=== PATIENT | male | born 1985 | race Caucasian/White ===

== ENCOUNTER 2024-12-09 08:46 | Emergency (ER) | payer OTHER, SELFPAY ==
[2024-12-09] VITALS (114 sets, daily range): BP systolic 96–135; BP diastolic 49–99; PULSE 60–104; RESP 9–30; TEMP 36.8; O2SAT 94–100
--- NOTE | 2024-12-09 08:49 | W.ED.GENAD ---
Discharge Plan Disposition Patient Disposition: Transfer-Acute Inpatient Care Specific Acute Inpt Facility: Other Discharge Details Clinical Impression: Pancreatic pseudocyst, Acute pancreatitis Primary Care Provider: Lara Koenig ED Provider: Jamar Jackson Home Meds and New Rx's Prescriptions: No Action venlafaxine [Effexor XR] 150 mg capsule,extended release 24hr 300 mg PO DAILY fentanyl 50 mcg/hr patch 72 hour 1 patch transdermal Q72H bupropion HCl [Wellbutrin XL] 150 mg tablet extended release 24 hr 150 mg PO DAILY insulin glargine [Lantus U-100 Insulin] 100 unit/mL solution 20 unit subcut BID hydromorphone [Dilaudid] 4 mg tablet 4 mg PO Q6H PRN insulin aspart U-100 [Novolog FlexPen U-100 Insulin] 100 unit/mL (3 mL) insulin pen 1 sliding scale dose subcut USEASDIRECTD uwijwe-vgjfcyzv-lxirvha [Creon] 1 tab PO TID PRN Patient Comments: Taken with meals. acamprosate 2 tab PO DAILY HPI General Date/Time Provider Initiated Documentation: 12/09/24 08:49. HPI Narrative: MDM This is an uncomfortable normothermic and not tachycardic 39-year-old male with history of recurrent pancreatitis with epigastric pain nausea decreased appetite for which patient will receive ondansetron, hydromorphone normal saline and assessment of labs to assess for pancreatitis. Given prior episodes of similar symptoms and no history of AAA my suspicion for aortic dissection is low. I reviewed CT scan from [facility] E[facility]. In July of this year patient had pancreatic ductal dilatation with severely atrophic body and tail of pancreas. He had previously had pancreatic fluid collections. He has had 1 [address] scan this year. Last year he had 4 CT scans of his abdomen and pelvis. No history of nephrolithiasis to suggest ureterolithiasis. No dysuria or frequency to suggest UTI. No chest pain to suggest ACS I did not obtain ECG. No right lower quadrant tenderness to suggest appendicitis. No left lower quadrant tenderness to suggest diverticulitis. Not short of breath and PERC negative so I did not send a D-dimer as he is not having chest pain my suspicion was low for PE. No rash to abdomen to suggest zoster. No pain or proportion to suggest necrotizing soft tissue infection. 9:42 AM CBC lacks anemia thrombocytopenia leukocytosis. 9:55 AM Chemistry showing reassuring normal creatinine. Mild hyperglycemia and very very mild anion gap acidosis but normal bicarbonate??not consistent with DKA. Markedly elevated alkaline phosphatase at 518. Elevated ALT greater than AST. Will add on hepatitis panel and complete CT abdomen pelvis with IV contrast to assess for obstruction mildly elevated lipase less than 3 times upper limit of normal. 10:[address] scan patient had inflammatory changes around his pancreatic head with cysts largest of which measured 4 x 3 cm. He also had some intra and extrahepatic ductal dilatation with gallbladder wall distention. No obvious cholelithiasis. He is not febrile nor altered to suggest choledocholithiasis. Given his symptoms he will require hospitalization. Will plan on completing formal right upper quadrant ultrasound to ensure patient does not have acute cholecystitis. Anticipating admitting to the hospitalist service for pain control. 3:25 PM Late charting due to patient care. I spoke multiple times to Dr. Phuong Cruz with GI [facility]. She advised unfortunately [facility] was at capacity. She did feel that the patient would benefit from ERCP with drainage of fluid collection. She says that this may be possible later this week at [facility] but she did not have any guarantees. She also noted that his LFTs were newly elevated. Given his newly elevated LFTs and his significant discomfort I felt that he would benefit from intervention sooner rather than later with GI so I spoke with [facility] after he was declined by [facility]. He was excepted by Dr. Celestin. I updated the patient and his mother at bedside. I ordered his home glargine and his daily 50 mcg fentanyl patch. I held his aspart. I also ordered his venlafaxine and bupropion. I printed him to have some ice chips. He was sent with a CT to [place]. He will go with an EMG. HPI This is a patient with a history of pancreatitis presenting with abdominal pain. The patient has been experiencing abdominal discomfort for the past 5 days, which has progressively worsened. The pain is localized from the bottom of the sternum to the back, extending to both sides and below the rib cage. The patient reports feeling dizzy and nauseous but has not vomited. The appetite is diminished, with the last meal consisting of low-fat cottage cheese and Jell-O. The patient also notes that the urine is unusually dark. There is no respiratory distress or chest pain. However, the patient experienced a new sensation of burning or itching internally last night, along with a feeling of tightness, which is attributed to tension from the pain. The patient has no history of kidney stones and reports no burning sensation during urination. The patient has a history of pancreatitis, and the current symptoms are reminiscent of previous flare-ups. During these episodes, the patient typically requires hydration and laboratory tests due to abnormal liver and kidney function. The patient has undergone [address] Stewart at the tail of the pancreas, which revealed necrosis and necessitated stent placement. The stent has since been removed. The patient still has the gallbladder, which is reportedly full of sludge and possibly stones. The patient does not recall cholesterol levels from the last check. The patient has abstained from alcohol for over a year. The patient is currently on a pain management regimen for chronic pain, which includes a fentanyl patch every 72 hours and oral hydromorphone as needed. The patient recently had a checkup with the primary care physician and is considering tapering off one of these medications. Exam General: Uncomfortable-appearing in no acute distress speaking in complete sentences. Supportive mother at bedside. Head: Normocephalic, atraumatic. Eye: Extraocular eye movements intact. No conjunctival injection. No scleral icterus. Ear, nose, mouth, throat: Grossly normal inspection. Normal voice, handling secretions normally. Neck: Trachea midline. Cardiovascular: Well-perfused distal extremities. Respiratory: Nonlabored respiration. Clear lungs bilaterally. Gastrointestinal: Nondistended abdomen. Soft. Epigastric and left upper quadrant tenderness. No rebound. No guarding. Musculoskeletal: No edema. Moving all 4 extremities spontaneously. Skin: Normal for age and race, grossly normal temperature and turgor. No acute rash. Neurologic: Alert and appropriate, no apparent acute deficits. Psychiatric: Mood and manner are appropriate. Grooming and personal hygiene are appropriate. Related Data Home Medications ?Medication ?Instructions ?Recorded ?Confirmed acamprosate 2 tab PO DAILY 12/09/24 12/09/24 bupropion HCl 150 mg 24 hr tablet, 150 mg PO DAILY 12/09/24 12/09/24 extended release (Wellbutrin XL) fentanyl 50 mcg/hr transdermal 1 patch transdermal Q72H 12/09/24 12/09/24 patch hydromorphone 4 mg tablet 4 mg PO Q6H PRN 12/09/24 12/09/24 (Dilaudid) insulin aspart U-100 100 unit/mL 1 sliding scale dose subcut 12/09/24 12/09/24 (3 mL) subcutaneous pen (Novolog USEASDIRECTD FlexPen U-100 Insulin aspart) insulin glargine 100 unit/mL 20 unit subcut BID 12/09/24 12/09/24 subcutaneous solution (Lantus U-100 Insulin) begnth-zrketfhj-hyzekdd 1 tab PO TID PRN 12/09/24 12/09/24 venlafaxine 150 mg 300 mg PO DAILY 12/09/24 12/09/24 capsule,extended release 24 hr (Effexor XR) Allergies Allergy/AdvReac Type Severity Reaction Status Date / Time No Known Allergies Allergy Unverified 12/09/24 09:07 PFSH All Active Problems (Updated 12/09/24 @ 15:29 by Jamar Jackson MD) Acute pancreatitis (Acute) Pancreatic pseudocyst (Acute) Social History Smoking/Tobacco Use Status: Current every day Tobacco Type: smokeless tobacco Smoking risk assessment performed?: Yes Alcohol Intake: former Drug use: Daily Substance use type: marijuana Housing: apartment Do you feel safe at home: Yes Do you feel safe in your relationship?: Yes
[2024-12-09 09:36] LABS: Abs Immature Grans 0.02 10^3/uL (0.0-0.06); HCT 44.8 % (40.0-50.0); HGB 15.3 g/dL (13.5-17.5); Immature Grans % 0.3 %; MCH 28.8 pg (27.0-33.0); MCHC 34.2 % (32.0-36.0); MCV 84 fL (80-95); MPV 10.8 fL (8.0-11.0); Platelet Count 231 10^3/uL (130-400); RBC 5.32 10^6/uL (4.36-5.78); RDW 14.8 % (11.8-14.1); RDW-SD 45.1 fL; WBC 7.88 10^3/uL (4.4-10.8)
[2024-12-09] MEDS: Ondansetron 4 MG/2 ML VIAL IVP (09:39)
[2024-12-09] MEDS: HYDROmorphone 2 MG/ML SYR 0.7 MG IVP ×2 (09:41→11:58)
[2024-12-09] MEDS: Normal Saline 1,000 ML 1000 ML IV ×3 (09:43→15:49)
--- NOTE | 2024-12-09 09:45 | DI.CT_ITS ---
Exam(s) CT ABDOMEN PELVIS W EXAM: CT ABDOMEN PELVIS W CLINICAL HISTORY: Epigastric pain elevated LFTs TECHNIQUE: Imaging Protocol: Axial computed tomography images with coronal and sagittal reformatted images were created and reviewed. CONTRAST MATERIAL: Intravenous: Omnipaque 350 Contrast volume:75 mL Oral: No COMPARISON: No exams were available for comparison FINDINGS: ABDOMEN: Lung Bases: No acute abnormality. Liver: Normal density. No measurable mass. Portal, Superior Mesenteric, and Splenic Veins: There is narrowing of the superior mesenteric vein just proximal to its confluence with the splenic vein. There are varices seen in the upper abdomen. Gallbladder and Biliary Tract: Gallbladder is distended. No stones are present. There is mild intra and extrahepatic biliary ductal dilatation. The common duct measures 1 cm. Pancreas: The pancreatic head is enlarged. There is a 4.1 x 3.3 cm cyst within or adjacent to the pancreatic head. There is a 1.4 cm cyst in the uncinate process. There is mild stranding around the pancreatic head. The pancreatic body and tail are atrophic. There is mild prominence of the pancreatic duct. Spleen: Normal. Adrenals: No masses seen. Kidneys: Normal size, contour and axis. No radiodense stones or obstructive uropathy. No masses seen. Abdominal Aorta: Abdominal portion non-dilated. Mild atherosclerotic calcification is present. Bowel: There is no evidence of bowel obstruction. There is wall thickening seen in the distal stomach and proximal duodenum suspicious for inflammatory change. This likely is secondary to the process in the adjacent pancreas. Appendix is unremarkable. Peritoneal Cavity: There is inflammatory stranding seen in the right upper quadrant. No free air. Lymph Nodes: Mildly prominent lymph nodes are seen in the upper abdomen which are likely reactive. Bones: Within normal limits for the patient's age. There is L4 spondylolysis without evidence of spondylolisthesis. Soft Tissues: There is a small fat containing left inguinal hernia. PELVIS: Bladder: Symmetric distention, no gross wall thickening. Reproductive Organs: Unremarkable as visualized. Lymph Nodes: Within normal limits. Bones: Within normal limits for the patient's age. IMPRESSION: 1. There are inflammatory changes seen around the pancreatic head with cysts seen within and adjacent to the head. The largest measures 4.1 x 3.3 cm. This may represent a pseudocyst. The findings are suspicious for acute pancreatitis. A repeat examination of the abdomen and pelvis should be considered following treatment to document resolution of the pancreatic findings and to exclude a pancreatic mass. 2. Mild intra and extrahepatic biliary ductal dilatation and distention of the gallbladder. No stones are seen on this examination, however a gallbladder ultrasound should be considered to assess for cholelithiasis. Choledocholithiasis cannot be entirely excluded. 3. Thickening of the wall of the distal stomach and duodenum likely a secondary inflammatory/infectious process due to the adjacent pancreatitis. 4. There is narrowing of the superior mesenteric artery just proximal to the confluence with the splenic artery. There are varices seen in the upper abdomen. The possibility of occlusion or thrombus should be considered. 5. Findings were discussed with Dr. Jackson at 10:45 a.m. on 12/09/2024. RADIATION DOSE DELIVERED: 538.14mGy.cm Total DLP DATA REPOSITORY: All CT scans at this facility are submitted to the National Radiology Data Registry (NRDR) Dose Index Registry (DIR) with the [employer] ([employer]). RADIATION OPTIMIZATION: All CT scans at this facility use at least one of these dose optimization techniques: automated exposure control; mA and/or kV adjustment per patient size (includes targeted exams where dose is matched to clinical indication); or iterative reconstruction.
[2024-12-09 09:50] LABS: ALT 283 U/L (16-63); AST 80 U/L (15-37); Albumin 4.2 g/dL (3.4-5.0); Alkaline Phosphatase 518 U/L (46-116); Anion Gap 11.1 mmol/L (3-11); BUN 13 mg/dL (7-18); Bilirubin, Total 3.1 mg/dL (0.2-1.0); CO2 25.9 mmol/L (21.0-32.0); Calcium 9.6 mg/dL (8.5-10.1); Chloride 95 mmol/L (98-107); Estimated GFR 119.46 (mL/min/1.73m2); Glucose 306 mg/dL (74-106); Lipase 144 U/L (<78); Potassium 4.7 mmol/L (3.5-5.1); Sodium 132 mmol/L (136-145); Total Protein 7.8 g/dL (6.4-8.2)
[2024-12-09] MEDS: Normal Saline - Diluent 50 ML VIAL IJ (10:05)
[2024-12-09] MEDS: Normal Saline Flush 10 ML SYR IVP (10:06)
[2024-12-09] MEDS: Omnipaque 350 MG/ML 100 ML BTL IJ (10:07)
--- NOTE | 2024-12-09 10:50 | DI.US_ITS ---
Exam(s) US ABDOMEN LIMITED EXAM: US ABDOMEN LIMITED CLINICAL HISTORY: RUQ pain TECHNIQUE: Ultrasound abdomen performed using standard protocol. COMPARISON: CT CT ABDOMEN PELVIS W from 12/09/2024 FINDINGS: PANCREAS: The pancreas could not be visualized due to overlying bowel gas. LIVER: Normal. Hepatopetal flow in the Portal Vein. The liver measures in 15.9 cm length. No evidence of a hepatic mass. GALLBLADDER: No evidence of cholelithiasis. No evidence of wall thickening. No pericholecystic fluid identified. There is a small amount of sludge seen in the gallbladder fundus. BILIARY SYSTEM: Common bile duct measures < 7 mm. No intrahepatic biliary ductal dilation. PECK'S SIGN: Negative. RIGHT KIDNEY: Kidney is normal in size. No evidence of renal calculi. No evidence of hydronephrosis. No renal mass or cyst identified. ASCITES: None seen. IMPRESSION: 1. There is no evidence of cholelithiasis. No sonographic findings to suggest acute cholecystitis. 2. Small amount of sludge within the gallbladder fundus. 3. The pancreas could not be visualized due to overlying bowel. DATA REPOSITORY:
[2024-12-09 11:00] LABS: Lab Add On Test DONE
[2024-12-09] MEDS: HYDROmorphone 2 MG/ML SYR 1 MG IVP ×2 (13:31→19:20)
[2024-12-09] MEDS: fentaNYL 50 MCG PATCH TD (15:06)
[2024-12-09] MEDS: buPROPion-XL 150 MG TABCR PO (15:07)
[2024-12-09] MEDS: Venlafaxine 150 MG CAPCR 300 MG PO (15:07)
[2024-12-09] MEDS: Insulin Glargine 100 UNITS/ML UNIT 20 UNITS SC (15:08)
[2024-12-09] MEDS: HYDROmorphone 2 MG/ML SYR 1.2 MG IVP (16:00)
[2024-12-09] MEDS: oxyCODONE 10 MG TAB PO (19:19)
[2024-12-09] MEDS: Droperidol 5 MG/2 ML VIAL 1.25 MG IVP (19:19)
[2024-12-09 20:26] LABS: Hepatitis A Antibody IgM Negative (Negative); Hepatitis C Ab w Rflx HCV PCR Negative (Negative)
== END 2024-12-09 22:38 | disposition short-term general hospital (02) ==
PROVIDERS: Emergency Medicine; Emergency Provider General Practice; PCP Family Medicine
DX: K85.90 Acute pancreatitis without necrosis or infection, unspecified (principal); K86.3 Pseudocyst of pancreas
CPT/HCPCS: 99285 ×2; 36415; 36416; 82962; 96374; 96375; 96376; 96372; 80053; 83690; 86704; 86709; 86803; 87340; 74177; 76705; 85025; J1171; J1790; J1815; J2405; J3490

== ENCOUNTER 2024-12-30 11:53 | Inpatient (IN) | payer OTHER, SELFPAY ==
[2024-12-30] VITALS (27 sets, daily range): BP systolic 110–138; BP diastolic 60–98; PULSE 65–98; RESP 16–20; TEMP 36.5–36.8; O2SAT 94–99
--- NOTE | 2024-12-30 12:15 | RT.EKG_ITS ---
APPROVED REPORT Exam: Resting ECG Reason for Exam: chest pain Patient Location: E HR:77 bpm ECG Measurements Heart Rate 77 AXIS CO 136 P 49 QRSd 92 QRS 34 QT 372 T 17 QTc 421 Conclusion Sinus rhythm...normal P axis, V-rate 60- 99 I have reviewed and interpreted ECG and agree with software generated interpretation.
[2024-12-30] MEDS: Ondansetron 4 MG/2 ML VIAL IVP ×2 (12:40→20:26)
[2024-12-30] MEDS: HYDROmorphone 2 MG/ML SYR 1 MG IVP (12:40)
[2024-12-30] MEDS: Lactated Ringers 1,000 ML 1000 ML IV (12:41)
[2024-12-30 12:52] LABS: Abs Immature Grans 0.02 10^3/uL (0.0-0.06); HCT 39.7 % (40.0-50.0); HGB 13.4 g/dL (13.5-17.5); Immature Grans % 0.2 %; MCH 29.6 pg (27.0-33.0); MCHC 33.8 % (32.0-36.0); MCV 88 fL (80-95); MPV 12.0 fL (8.0-11.0); Platelet Count 182 10^3/uL (130-400); RBC 4.52 10^6/uL (4.36-5.78); RDW 14.2 % (11.8-14.1); RDW-SD 45.7 fL; WBC 8.28 10^3/uL (4.4-10.8)
[2024-12-30 13:11] LABS: INR 1.1 (0.9-1.1); PTT Activated 26.0 sec (20.6-30.2); Prothrombin Time 10.8 sec (9.1-11.1)
--- NOTE | 2024-12-30 13:11 | ED.GENADUL_ITS ---
Discharge Plan Disposition Patient Disposition: Admit to [facility] Condition: Stable Discharge Details Clinical Impression: Hepatitis, Abdominal pain Primary Care Provider: Lara Koenig ED Provider: Jaime Zamora Home Meds and New Rx's Prescriptions: No Action venlafaxine [Effexor XR] 150 mg capsule,extended release 24hr 300 mg PO DAILY fentanyl 50 mcg/hr patch 72 hour 1 patch transdermal Q72H bupropion HCl [Wellbutrin XL] 150 mg tablet extended release 24 hr 150 mg PO DAILY insulin glargine [Lantus U-100 Insulin] 100 unit/mL solution 20 unit subcut BID hydromorphone [Dilaudid] 4 mg tablet 4 mg PO Q6H PRN insulin aspart U-100 [Novolog FlexPen U-100 Insulin] 100 unit/mL (3 mL) insulin pen 1 sliding scale dose subcut USEASDIRECTD [id number] [Creon] 1 tab PO TID PRN Patient Comments: Taken with meals. acamprosate 2 tab PO DAILY HPI General Date/Time Provider Initiated Documentation: 12/30/24 12:08 . HPI Narrative: This is a pleasant 39-year-old male with a past medical history of diabetes mellitus, previous/chronic pancreatic cysts and chronic pancreatitis with previous stents which have been removed, on daily Dilaudid and fentanyl patches as prescribed by his primary care provider, who was recently here on 12/09/2024, diagnosed with acute cholecystitis and transferred to [facility] where he had a cholecystectomy. Since then the patient has had somewhat chronic persistent pain however over the last 48 hours it is notably worsened. He has had nausea but no vomiting. He admits to pain mainly in the upper abdominal region, severe in nature. It is constant. He has been taking his home Dilaudid without any improvement. He denies any other complaints. He denies any blood in his stool, chest pain, cough, fever or chills. No other modifying factors at this time. Related Data Home Medications ?Medication ?Instructions ?Recorded ?Confirmed acamprosate 2 tab PO DAILY 12/09/2412/08 bupropion HCl 150 mg 24 hr tablet, 150 mg PO DAILY 06/3012/30/24 extended release (Wellbutrin XL) fentanyl 50 mcg/hr transdermal 1 patch transdermal Q72 H 12/09/24 12/30/24 patch hydromorphone 4 mg tablet 4 mg PO Q6H PRN 12/09/24 (Dilaudid) insulin aspart U-100 100 unit/mL 1 sliding scale dose subcut 12/09/24 12/30/24 (3 mL) subcutaneous pen (Novolog USEASDIRECTD FlexPen U-100 Insulin aspart) insulin glargine 100 unit/mL 20 unit subcut BID 12/30/24 subcutaneous solution (Lantus U-100 Insulin) [id number] 1 tab PO TID PRN 12/09/24 venlafaxine 150 mg 300 mg PO DAILY 12/09/24 capsule,extended release 24 hr (Effexor XR) Allergies Allergy/AdvReac Type Severity Reaction Status Date / Time No Known Allergies Allergy Unverified 12/30/24 11:59 General Stated Complaint: Abd Prob JAYSHREE: 3 Exam Narrative Exam Narrative: 1.Const: Well-nourished, Well-developed, appearing stated age 2.Eyes: PERRL, no conjunctival injection, and symmetrical lids. 3.ENT: Atraumatic external nose and ears. Moist MM. Neck: Symmetric, trachea midline, No thyromegaly. 4.CVS: +S1/S2, Peripheral pulses 2+ and equal in all extremities. Brisk capillary refill in all extremities. 5.RESP: Unlabored respiratory effort. Clear to auscultation bilaterally. No wh eezes rales or rhonchi 6.GI: Somewhat rigid, voluntary guarding, tenderness throughout, especially the postoperative sites are clean dry and intact, minimal dehiscence over the inferior medial site but no drainage discharge or redness. 7.MSK: Normocephalic/Atraumatic, Extremities w/o deformity or ttp No cyanosis or clubbing, Normal movement of all extremities 8.Skin: Warm, Dry. No rashes or lesions. 9.Neuro: gusset stitcher II-XII grossly intact. Sensation grossly intact, no focal neurologic deficits. 10.Psych: (AAO) x3. Appropriate mood and affect Course Vital Signs Vital signs: Vital Signs Temperature 36.8 C 12/30/24 11:56 Pulse 90 12/30/24 11:56 Respiratory Rate 18 12/30/24 11:56 Blood Pressure 121/82 12/30/24 11:56 Pulse Oximetry 98 12/30/24 11:56 Temperature 36.8 C 12/30/24 11:56 Pulse 90 12/30/24 11:56 Respiratory Rate 18 12/30/24 11:56 Blood Pressure 121/82 12/30/24 11:56 Pulse Oximetry 98 12/30/24 11:56 Oxygen Delivery Method Room Air 12/30/24 11:56 Oxygen Flow Rate 0 12/30/24 11:56 Pain Level 7 12/30/24 12:40 Lab/Test Results Lab/Test Results: Laboratory Tests Range/Units 12/30/24 12:35 WBC (4.4-10.8) 10^3/uL 8.28 RBC (4.36-5.78) 10^6/uL 4.52 Hgb (13.5-17.5) g/dL 13.4 L Hct (40.0-50.0) % 39.7 L MCV (80-95) fL 88 MCH (27.0-33.0) pg 29.6 MCHC (32.0-36.0) % 33.8 RDW (11.8-14.1) % 14.2 H Plt Count (130-400) 10^3/uL 182 MPV (8.0-11.0) fL 12.0 H Immature Gran % % 0.2 Neutrophils % % 69.0 Lymphocytes % % 18.7 Monocytes % % 5.2 Eosinophils % % 6.3 Basophils % % 0.6 Nucleated RBC % (0.0-0.3) % 0.0 Absolute Neutrophils (1.2-6.7) 10^3/uL 5.71 Absolute Lymphocytes (1.2-3.4) 10^3/uL 1.55 Absolute Monocytes (0.1-0.8) 10^3/uL 0.43 Absolute Eosinophils (0.0-0.7) 10^3/uL 0.52 Absolute Basophils (0.0-0.2) 10^3/uL 0.05 VBG Lactate (<or=2.0) mmol/L 1.1 Medical Decision Making This is a pleasant 39-year-old male with a past medical history of diabetes mellitus, previous/chronic pancreatic cysts and chronic pancreatitis with previous stents which have been removed, on daily Dilaudid and fentanyl patches as prescribed by his primary care provider, who was recently here on 12/09/2024, diagnosed with acute cholecystitis and transferred to [facility] where he had a cholecystectomy. Since then the patient has had somewhat chronic persistent pain however over the last 48 hours it is notably worsened. He has had nausea but no vomiting. He admits to pain mainly in the upper abdominal region, severe in nature. It is constant. He has been taking his home Dilaudid without any improvement. He denies any other complaints. He denies any blood in his stool, chest pain, cough, fever or chills. No other modifying factors at this time. Somewhat rigid, voluntary guarding, tenderness throughout, especially the postoperative sites are clean dry and intact, minimal dehiscence over the inferior medial site but no drainage discharge or redness. Differential includes worsening pancreatitis, postoperative abscess, hepatitis, or other acute process. Will evaluate for these concerning etiologies monitor closely and reassess. 2:51 PM Laboratory workup shows no white count or bandemia. Electrolytes stable, the patient's transaminases and alk phos are all notably higher. We were not able to get complete records from [facility] yet, but we were able to get his last transaminases and alk phos level from his discharge on 12/16/2024. At the time of discharge his AST was 96, ALT 170, alk phos 251, now they are 239, 606, and 707 respectively. Bilirubin is low at 1.6, his last bilirubin here was 3.1. CT scan shows no evidence of acute process, there is an improvement of the pancreatic pseudocyst, there is mild persistent inflammation, but no other significant worsening abnormality. There is persistent and stable mild intra and extra hepatic biliary dilatation. No other acute process. Procalcitonin is mildly elevated at 0.17, lactate was normal. Without significant change in his biliary ducts, I doubt this would be an acute stone that is lodged however it does remain on the differential. However, I do not feel that this is indicative of ascending cholangitis as he has no white count, fever, bandemia or left shift, additionally he has a drop in bilirubin. Postoperative hepatitis is of concern. Choledocholithiasis is of concern. We will reach out to our surgical colleagues here. 4:12 PM MRCP has returned negative for acute process or stone blockage. I did contact surgery Dr. Barrientos. We reviewed the case, and at this time there does not appear to be evidence or indication for an acute surgical etiology. She does suggest potential HIDA scan might be helpful for further evaluation of fluid leak, however without evidence of fluid collection on MRCP or ERCP significant pathology is unlikely. I have added a hepatitis panel as well as a tick and Lyme panel. Surgery recommendations as well as my own recommendations at this time would be admission/observation and recheck of labs tomorrow to make sure they are downtrending. Coagulation panel shows no evidence of significant abnormality. Will recommend admission for lab recheck, continued IV hydration and pain control as needed. Will reach out to the hospitalist. Discussed the case with the hospitalist. They agree with the assessment and plan. I have extensively reviewed the treatment plan with the patient. I have addressed all patient concerns at this time. I have also discussed the plan with the admitting physician and they agree with the current assessment and plan and have agreed to assume responsibility for the patient. All parties demonstrate verbal understanding and agreement with our assessment and plan at this time. The documentation in this chart was dictated using [employer] dictation software. Please excuse any dictation errors. FINDINGS: ABDOMEN and PELVIS: Lung Bases: No acute findings. Liver: Normal density. No suspicious mass. Gallbladder and biliary tract: Status post cholecystectomy. There is stable mild intra and extrahepatic biliary dilatation. No visible common duct stones. No residual fluid in the gallbladder fossa. Pancreas: There is been interval decrease in size of previously noted pseudocyst anterior to the pancreatic head. Approximate measurements are 1.6 x 3.3 cm compared to 4.1 x 3.3 cm on the prior exam. The cyst in the uncinate process has significantly decreased in size, barely discretely visible. There is persistent mild dilatation of the pancreatic duct. The tail of the pancreas is either surgically or congenitally absent or extremely atrophic. There is some persistent mild stranding around the head of the pancreas. Spleen: Normal. Kidneys: Normal size, contour and axis. No radiodense stones. No obstructive uropathy. No suspicious masses seen. Adrenal glands: No masses seen. Vasculature: Abdominal aorta non-dilated. Soft tissues: Unremarkable. Bladder: Over distended. No gross wall thickening. No calculi.No focal mass. Bowel: There is mild wall thickening of the duodenum, adjacent to the head of the pancreas, consistent with secondary inflammation. No obstruction. No bowel wall thickening. Appendix normal. Normal quantity of stool. Peritoneal cavity: No ascites. No focal collection. No mesenteric inflammatory response. No free air. Bones: Bilateral L4 spondylolysis. No significant spondylolisthesis. Reproductive organs: Unremarkable. Lymph nodes: No pathologically enlarged lymph nodes. IMPRESSION:: Interval decrease in size of pancreatic pseudocyst. Persistent mild inflammation. Status post cholecystectomy. No fluid in the gallbladder fossa. Persistent mild intra and extrahepatic biliary dilatation. No new abnormalities. Findings called to Dr. Zamora of the emergency department. FINDINGS: Lung bases: Unremarkable. Liver: Unremarkable. Gallbladder: Status post cholecystectomy. No fluid in the gallbladder fossa. Bile Ducts: Mild dilatation of the intra and extrahepatic biliary ducts. Common bile duct tapers into the pancreatic head. Mild dilatation of the pancreatic duct. The findings appear stable compared with previous exams. There is no ev idence of common bile duct stones. Pancreas: Atrophy of the body and tail. Pseudocyst again noted anterior to the pancreatic head. Pseudocyst size is decreased compared with 09 December 2024 Adrenals: Unremarkable. Kidneys: Unremarkable. Spleen: Unremarkable. Aorta: Unremarkable. Soft Tissues: Unremarkable. Bone: Unremarkable. Lymph Nodes: Unremarkable. Mesentery: No ascites. No focal fluid collection. Bowel: No abnormal dilatation or wall thickening. IMPRESSION: Status post cholecystectomy. Mild dilatation of intra and extrahepatic bile ducts similar to prior exams. No common duct stones. No abnormality identified in the liver. Decreased size of pancreatic pseudocyst compared with 09 December 2024. No significant current inflammation around the pancreas. [facility] All Active Problems (Updated 12/30/24 @ 16:22 by Jaime Zamora DO) Abdominal pain (Acute) Hepatitis (Acute) Acute pancreatitis (Acute) Pancreatic pseudocyst (Acute) Social History Smoking/Tobacco Use Status: Current every day Tobacco Type: smokeless tobacco Smoking risk assessment performed?: Yes Alcohol Intake: former Drug use: Daily Substance use type: marijuana Housing: apartment Do you feel safe at home: Yes Do you feel safe in your relationship?: Yes
[2024-12-30 13:16] LABS: ALT 608 U/L (16-63); AST 239 U/L (15-37); Albumin 3.9 g/dL (3.4-5.0); Alkaline Phosphatase 707 U/L (46-116); Anion Gap 5.0 mmol/L (3-11); BUN 12 mg/dL (7-18); Bilirubin, Total 1.6 mg/dL (0.2-1.0); CO2 32.0 mmol/L (21.0-32.0); Calcium 9.5 mg/dL (8.5-10.1); Chloride 95 mmol/L (98-107); Estimated GFR 119.46 (mL/min/1.73m2); Glucose 370 mg/dL (74-106); Lipase 60 U/L (<78); Potassium 4.1 mmol/L (3.5-5.1); Sodium 132 mmol/L (136-145); Total Protein 7.4 g/dL (6.4-8.2)
[2024-12-30 13:33] LABS: Procalcitonin 0.17 ng/mL
[2024-12-30 13:45] LABS: Glucose 500 mg/dL (Negative)
[2024-12-30] MEDS: HYDROmorphone 2 MG/ML SYR IVP ×5 (13:53→23:13)
[2024-12-30] MEDS: Omnipaque 350 MG/ML 100 ML BTL IJ (14:05)
[2024-12-30] MEDS: Normal Saline - Diluent 50 ML VIAL IJ (14:05)
[2024-12-30] MEDS: Normal Saline Flush 10 ML SYR IVP ×2 (14:06→21:01)
--- NOTE | 2024-12-30 14:10 | DI.CT_ITS ---
Exam(s) CT ABDOMEN PELVIS W EXAM: CT ABDOMEN PELVIS W CLINICAL HISTORY: Recent cholecystectomy, chronic pancreatitis. TECHNIQUE: Imaging Protocol: Axial computed tomography images with coronal and sagittal reformatted images were created and reviewed CONTRAST MATERIAL: Intravenous: Omnipaque 350 Contrast volume:75 ml Oral: no COMPARISON: CT CT ABDOMEN PELVIS W from 12/09/2024 FINDINGS: ABDOMEN and PELVIS: Lung Bases: No acute findings. Liver: Normal density. No suspicious mass. Gallbladder and biliary tract: Status post cholecystectomy. There is stable mild intra and extrahepatic biliary dilatation. No visible common duct stones. No residual fluid in the gallbladder fossa. Pancreas: There is been interval decrease in size of previously noted pseudocyst anterior to the pancreatic head. Approximate measurements are 1.6 x 3.3 cm compared to 4.1 x 3.3 cm on the prior exam. The cyst in the uncinate process has significantly decreased in size, barely discretely visible. There is persistent mild dilatation of the pancreatic duct. The tail of the pancreas is either surgically or congenitally absent or extremely atrophic. There is some persistent mild stranding around the head of the pancreas. Spleen: Normal. Kidneys: Normal size, contour and axis. No radiodense stones. No obstructive uropathy. No suspicious masses seen. Adrenal glands: No masses seen. Vasculature: Abdominal aorta non-dilated. Soft tissues: Unremarkable. Bladder: Over distended. No gross wall thickening. No calculi.No focal mass. Bowel: There is mild wall thickening of the duodenum, adjacent to the head of the pancreas, consistent with secondary inflammation. No obstruction. No bowel wall thickening. Appendix normal. Normal quantity of stool. Peritoneal cavity: No ascites. No focal collection. No mesenteric inflammatory response. No free air. Bones: Bilateral L4 spondylolysis. No significant spondylolisthesis. Reproductive organs: Unremarkable. Lymph nodes: No pathologically enlarged lymph nodes. IMPRESSION:: Interval decrease in size of pancreatic pseudocyst. Persistent mild inflammation. Status post cholecystectomy. No fluid in the gallbladder fossa. Persistent mild intra and extrahepatic biliary dilatation. No new abnormalities. Findings called to Dr. Zamora of the emergency department. RADIATION DOSE DELIVERED: Total DLP DATA REPOSITORY: All CT scans at this facility are submitted to the National Radiology Data Registry (NRDR) Dose Index Registry (DIR) with the [employer] (ACR). RADIATION OPTIMIZATION: All CT scans at this facility use at least one of these dose optimization techniques: automated exposure control; mA and/or kV adjustment per patient size (includes targeted exams where dose is matched to clinical indication); or iterative reconstruction.
--- NOTE | 2024-12-30 14:45 | DI.MRI_ITS ---
Exam(s) MR ABDOMEN WO EXAM: MR ABDOMEN WO CLINICAL HISTORY: Postcholecystectomy, no transaminitis TECHNIQUE: Multiplanar multisequence MRI of the Abdomen was performed. MRCP sequences also performed. COMPARISON: US US ABDOMEN LIMITED from 12/09/[address] ABDOMEN PELVIS W from 12/09/[address] ABDOMEN PELVIS W from 12/30/2024 FINDINGS: Lung bases: Unremarkable. Liver: Unremarkable. Gallbladder: Status post cholecystectomy. No fluid in the gallbladder fossa. Bile Ducts: Mild dilatation of the intra and extrahepatic biliary ducts. Common bile duct tapers into the pancreatic head. Mild dilatation of the pancreatic duct. The findings appear stable compared with previous exams. There is no evidence of common bile duct stones. Pancreas: Atrophy of the body and tail. Pseudocyst again noted anterior to the pancreatic head. Pseudocyst size is decreased compared with 09 December 2024 Adrenals: Unremarkable. Kidneys: Unremarkable. Spleen: Unremarkable. Aorta: Unremarkable. Soft Tissues: Unremarkable. Bone: Unremarkable. Lymph Nodes: Unremarkable. Mesentery: No ascites. No focal fluid collection. Bowel: No abnormal dilatation or wall thickening. IMPRESSION: Status post cholecystectomy. Mild dilatation of intra and extrahepatic bile ducts similar to prior exams. No common duct stones. No abnormality identified in the liver. Decreased size of pancreatic pseudocyst compared with 09 December 2024. No significant current inflammation around the pancreas. DATA REPOSITORY:
--- NOTE | 2024-12-30 15:55 | NUR.NOTE ---
Faxed a request for discharge summary from [facility] to their records release facility @ [phone]. Nursing Note:
--- NOTE | 2024-12-30 17:02 | HPE_ITS ---
Date of service: 12/30/24 Time of Service: 17:02 Assessment and Plan Assessment and plan (1) Abdominal pain: Status: Acute Assessment and plan: Patient has persistent, severe upper abdominal pain not relieved by home opioids. Dilaudid 4 mg QID prn and fentanyl 50 mcg patch (200 MME) Imaging shows decreased size of pancreatic pseudocyst, mild pancreatic duct dilatation, and mild inflammation; no fluid collection or acute obstruction. Admission for observation, IV hydration, and pain control. Trend labs (CBC, CMP, LFTs, amylase/lipase) daily. Surgical consultation obtained; no acute surgical intervention indicated at this time. Apply new fentayl patch and dilaudid 2 mg q3h prn severe pain ~ 200 MME - increase if pain not controlled. (2) Pancreatic pseudocyst: Status: Acute Assessment and plan: Interval decrease noted on imaging; mild residual inflammation persists. Observation; no intervention currently indicated. Continue monitoring for pain or complications. Hold enzymes as on clear liquids (3) Transaminitis: Status: Acute Assessment and plan: Significant elevation in AST/ALT/ALP compared to prior baseline; bilirubin improving. No systemic signs of infection. Monitor LFTs daily, hepatitis panel and tick/Lyme panel ordered. Consider HIDA scan if clinical or lab status worsens. Continue supportive care. Continue routine monitoring of vitals, hydration, electrolytes. Reassess daily and adjust plan based on clinical status, labs, and imaging. (4) Chronic pain: Status: Chronic Assessment and plan: Patient on fentanyl patch and PRN Dilaudid; pain remains significant. IV dilaudid as needed for breakthrough pain. Monitor for efficacy and side effects. 200 MME at home; Dilaudid 2 mg IV q3h prn severe pain (5) Type 2 diabetes mellitus: Status: Acute Assessment and plan: Home insulin regimen continues - decreased 10 %; on clears (glargine + sliding scale aspart). Monitor blood glucose inpatient; adjust insulin per sliding scale. (6) Alcohol use disorder: Status: Acute Assessment and plan: Continue home med (patient has with him, pharmacy to approve) Acamprosate - verifying dose Patient reports 1.5 y sobriety History of Present Illness Narrative: This is a 39-year-old male with a history of diabetes mellitus, chronic pancreatitis with prior stents (now removed), pancreatic pseudocyst, and recent cholecystectomy on 12/09/24 at [facility]. He presented with worsening upper abdominal pain over 48 hours, severe and constant, associated with nausea but no vomiting. His chronic pain regimen of fentanyl patch and oral Dilaudid did not relieve symptoms. He denied fevers, chills, chest pain, cough, GI bleeding, or urinary symptoms. On exam, he was afebrile, hemodynamically stable, and alert/oriented. Abdomen revealed voluntary guarding and diffuse tenderness, greatest at surgical sites, which were clean, dry, and intact with minimal dehiscence but no drainage or erythema. Labs revealed stable CBC without leukocytosis or bandemia, but transaminases and alkaline phosphatase were significantly elevated compared to recent baseline (AST 239, ALT 606, Alk Phos 707). Bilirubin was 1.6, down from 3.1 at prior check. Lactate was normal. Procalcitonin was mildly elevated but no systemic signs of infection were present. Imaging included CT and MRCP, which demonstrated decreased size of pancreatic pseudocyst, persistent but stable mild intra- and extrahepatic biliary dilatation, pancreatic atrophy with mild duct dilatation, and no evidence of common bile duct stones, fluid collections, or acute obstruction. No acute postoperative complications were identified. Surgical consultation was obtained; no acute operative intervention was indicated. Patient is placed on observation status, IV hydration, pain control, and trending of LFTs was recommended. Hepatitis and tick-borne illness panels were ordered, with consideration of HIDA scan if labs worsen or symptoms progress. Patient agrees with plan of care. Patient is a full code. Review of Systems Narrative: General: Denies fever, chills, weight loss. HEENT: No vision changes, sore throat, or ear pain. Cardiac: No chest pain, palpitations, or edema. Respiratory: Denies cough, shortness of breath, wheezing. GI: Positive for abdominal pain and nausea. Denies vomiting, diarrhea, hematochezia, melena. : No dysuria, hematuria, or frequency. MSK: No joint pain, swelling, or trauma. Neuro: Denies headache, weakness, dizziness, focal deficits. Skin: No rash or lesions. Psych: Normal mood, denies suicidal ideation. PFSH All Active Problems (Updated 12/30/24 @ 18:32 by Darby Garland NP) Alcohol use disorder (Acute) Type 2 diabetes mellitus (Acute) Chronic pain (Chronic) Transaminitis (Acute) Abdominal pain (Acute) Hepatitis (Acute) Acute pancreatitis (Acute) Pancreatic pseudocyst (Acute) Social History Smoking/Tobacco Use Status: Current every day Tobacco Type: smokeless tobacco Smoking risk assessment performed?: Yes Alcohol Intake: former Drug use: Daily Substance use type: marijuana Housing: apartment Do you feel safe at home: Yes Do you feel safe in your relationship?: Yes Meds Allergies and Home Medications Allergies Allergy/AdvReac Type Severity Reaction Status Date / Time No Known Allergies Allergy Unverified 12/30/24 11:59 Home Medications ?Medication ?Instructions ?Recorded ?Confirmed ?Type acamprosate 2 tab PO DAILY 12/09/2412/08 History bupropion HCl 150 mg 24 hr tablet, 150 mg PO DAILY 06/3012/30/24 History extended release (Wellbutrin XL) fentanyl 50 mcg/hr transdermal 1 patch transdermal Q72 H 12/09/24 12/30/24 History patch hydromorphone 4 mg tablet 4 mg PO Q6H PRN 12/09/24 History (Dilaudid) insulin aspart U-100 100 unit/mL 1 sliding scale dose subcut 12/09/24 12/30/24 History (3 mL) subcutaneous pen (Novolog USEASDIRECTD FlexPen U-100 Insulin aspart) insulin glargine 100 unit/mL 20 unit subcut BID 12/30/24 History subcutaneous solution (Lantus U-100 Insulin) pxetez-ihplkbku-qqzikef 1 tab PO TID PRN 12/09/24 History venlafaxine 150 mg 300 mg PO DAILY 12/09/24 History capsule,extended release 24 hr (Effexor XR) Exam Narrative Exam Narrative: * General: Well-nourished, well-developed, in mild distress from abdominal pain. * Eyes: PERRL, no conjunctival injection, symmetrical lids. * ENT/Neck: Moist mucous membranes, trachea midline, no thyromegaly. * Cardiac: Regular rate and rhythm, normal S1/S2, 2+ peripheral pulses, brisk cap refill. * Respiratory: Clear to auscultation bilaterally, unlabored effort, no wheezes/rales/rhonchi. * Abdomen: Mild rigidity with voluntary guarding and diffuse tenderness, greatest at surgical sites. Incisions clean/dry/intact, minimal inferior medial dehiscence without drainage or erythema. * MSK: Normal movement of all extremities, no deformity, cyanosis, or clubbing. * Skin: Warm, dry, intact, no rashes or lesions. * Neuro: CN II?XII grossly intact, sensation intact, no focal deficits. * Psych: Alert and oriented x3, appropriate mood and affect. Results Labs 12/30/24 12:35 12/30/24 12:35 Labs: Laboratory Results - last 24 hr 12/30/24 12/30/24 12:35 13:03 WBC 8.28 RBC 4.52 Hgb 13.4 L Hct 39.7 L MCV 88 MCH 29.6 MCHC 33.8 RDW 14.2 H Plt Count 182 MPV 12.0 H Immature Gran % 0.2 Neutrophils % 69.0 Lymphocytes % 18.7 Monocytes % 5.2 Eosinophils % 6.3 Basophils % 0.6 Nucleated RBC % 0.0 Absolute Neutrophils 5.71 Absolute Lymphocytes 1.55 Absolute Monocytes 0.43 Absolute Eosinophils 0.52 Absolute Basophils 0.05 PT 10.8 INR 1.1 APTT 26.0 VBG Lactate 1.1 Sodium 132 L Potassium 4.1 Chloride 95 L Carbon Dioxide 32.0 Anion Gap 5.0 BUN 12 Creatinine 0.7 Est GFR (CKD-EPI 2020) 119.46 Glucose 370 H Calcium 9.5 Total Bilirubin 1.6 H AST 239 H ALT 608 H Alkaline Phosphatase 707 H Total Protein 7.4 Albumin 3.9 Lipase 60 Procalcitonin 0.17 Urine Color Yellow Urine Clarity Clear Urine pH 7.5 Ur Specific [place] 1.015 Urine Protein Negative Urine Ketones Negative Urine Blood Negative Urine Nitrite Negative Urine Bilirubin Negative Urine Urobilinogen 0.2 Ur Leukocyte Esterase Negative Urine Glucose 500 H Last Vital Signs Temp 36.8 C 12/30/24 11:56 Pulse 67 12/30/24 16:10 Resp 18 12/30/24 11:56 BP 113/86 12/30/24 16:04 Pulse Ox 95 12/30/24 16:10 Time Spent Time spent with Patient: 40-54 minutes Time was spent: preparing to see the patient(eg.review tests), obtaining and/or reviewing separately otained hiistory, ordering medications,tests, procedures, referring, communicating with other health associate director career services, indepentently interpreting results, counseling the patient and care coordination
--- NOTE | 2024-12-30 18:11 | W.PC.ACHO ---
Registration Status: ADM PRAMOD Primary Language: Preferred Language: Unable to Obtain ED Information & Data Chief Complaint Abd Prob 12/30/24 13:14 Triage Note pt with chronic pancreatitis 12/30/24 11:56 pt states he was just sent to [facility] to have gallbladder out 14 days ago pt was there 6 days and now is having abdominal pain and nausea and dizzy Most Recent Vital Signs Temperature 36.8 C 12/30/24 11:56 Temperature Source Temporal Artery Scan 12/30/24 17:49 Pulse 92 H 12/30/24 17:49 Pulse Rhythm Regular 12/30/24 17:50 Respiratory Rate 20 12/30/24 17:49 Respiratory Effort Normal 12/30/24 17:50 Respiratory Depth Normal 12/30/24 17:50 Respiratory Pattern Normal 12/30/24 17:50 Blood Pressure 118/98 H 12/30/24 17:49 Blood Pressure Mean 104 12/30/24 17:49 Pulse Oximetry 98 12/30/24 17:49 Oxygen Delivery Method Room Air 12/30/24 17:49 Oxygen Flow Rate 0 12/30/24 17:49 Pain Level 5 12/30/24 17:40 Allergies No Known Allergies Allergy (Unverified 12/30/24 11:59) Active Medications Generic Name Dose Route Start Last Admin Trade Name Freq PRN Reason Stop Dose Admin Iohexol 100 ml 12/30/24 14:15 12/30/24 14:05 Omnipaque 350 Mg/Ml 100 Ml Btl IJ 01/29/25 23:59 75 ml DIRECTED KELLY Administration Ondansetron HCl 4 mg 12/30/24 17:42 12/30/24 18:07 Ondansetron 4 Mg/2 Ml Vial IVP Not Given Q6H KELLY Sodium Chloride 0 ml 12/30/24 14:02 12/30/24 14:06 Normal Saline Flush 10 Ml Syr IVP 10 ml PRN PRN Administration Sodium Chloride 50 ml 12/30/24 14:15 12/30/24 14:05 Normal Saline - Diluent 50 Ml Vial IJ 50 ml DIRECTED KELLY Administration IV IV Catheter Type [Right Peripheral IV Antecubital] IV Catheter Gauge [Right 18 Antecubital] Diet Orders Category Date Time Status DIET [Regular/Normal] [DIET] Nutrition 12/31/24 Breakfast Ordered Diagnostics 12/30/24 12/30/24 12/30/24 Range/Units 16:33 13:03 12:35 WBC 8.28 (4.4-10.8) 10^3/uL RBC 4.52 (4.36-5.78) 10^6/uL Hgb 13.4 L (13.5-17.5) g/dL Hct 39.7 L (40.0-50.0) % MCV 88 (80-95) fL MCH 29.6 (27.0-33.0) pg MCHC 33.8 (32.0-36.0) % RDW 14.2 H (11.8-14.1) % Plt Count 182 (130-400) 10^3/uL MPV 12.0 H (8.0-11.0) fL Immature Gran % 0.2 % Neutrophils % 69.0 % Lymphocytes % 18.7 % Monocytes % 5.2 % Eosinophils % 6.3 % Basophils % 0.6 % Nucleated RBC % 0.0 (0.0-0.3) % Absolute Neutrophils 5.71 (1.2-6.7) 10^3/uL Absolute Lymphocytes 1.55 (1.2-3.4) 10^3/uL Absolute Monocytes 0.43 (0.1-0.8) 10^3/uL Absolute Eosinophils 0.52 (0.0-0.7) 10^3/uL Absolute Basophils 0.05 (0.0-0.2) 10^3/uL PT 10.8 (9.1-11.1) sec INR 1.1 (0.9-1.1) APTT 26.0 (20.6-30.2) sec VBG Lactate 1.1 (<or=2.0) mmol/L Sodium 132 L (136-145) mmol/L Potassium 4.1 (3.5-5.1) mmol/L Chloride 95 L (98-107) mmol/L Carbon Dioxide 32.0 (21.0-32.0) mmol/L Anion Gap 5.0 (3-11) mmol/L BUN 12 (7-18) mg/dL Creatinine 0.7 (0.70-1.30) mg/dL Est GFR (CKD-EPI 2020) 119.46 (mL/min/1.73m2) Glucose 370 H (74-106) mg/dL Calcium 9.5 (8.5-10.1) mg/dL Total Bilirubin 1.6 H (0.2-1.0) mg/dL AST 239 H (15-37) U/L ALT 608 H (16-63) U/L Alkaline Phosphatase 707 H (46-116) U/L Total Protein 7.4 (6.4-8.2) g/dL Albumin 3.9 (3.4-5.0) g/dL Lipase 60 (<78) U/L Procalcitonin 0.17 ng/mL Urine Color Yellow (Yellow) Urine Clarity Clear (Clear) Urine pH 7.5 (5-8) Ur Specific [place] 1.015 (1.005-1.025) Urine Protein Negative (Neg-Trace) mg/dL Urine Ketones Negative (Negative) mg/dL Urine Blood Negative (Negative) Urine Nitrite Negative (Negative) Urine Bilirubin Negative (Negative) Urine Urobilinogen 0.2 (Up to 0.2) mg/dL Ur Leukocyte Esterase Negative (Negative) Urine Glucose 500 H (Negative) mg/dL B. divergens/MO-1 PCR Pending Babesia duncani (PCR) Pending Babesia microti DNA PCR Pending Lyme Disease Antibody Pending E.chaffeensis DNA (PCR) Pending E.ewingii/canis DNA PCR Pending E.muris eauclairensis (PCR) Pending Hepatitis A IgM Ab Pending Hep Bs Antigen Pending Hep B Core Total Ab Pending Hepatitis C Antibody Pending A. phagocytophilum (PCR) Pending Blood B. miyamotoi (PCR) Pending Yvyuq-ht-Hyiw Documentation Fingerstick Glucose Start: 12/30/24 12:59 Freq: Status: Complete Protocol: Activity Type Activity Date Activity User E-sign Co-sign Detail Recorded Client Recorded Date Recorded By Document 12/30/24 12:58 BKG DAEMON(3) [id number] 12/30/24 12:59 BKG DAEMON(4) Intake and Output - 24 Hour Total 12/30/24 11:53 thru 12/30/24 12:41 Intake Total 10 Balance 10 Weight 78.925 kg Intake: IV 10 Falls Risk Assessment History of Falls No History 12/30/24 17:50 Contributing Factors No Factors 12/30/24 17:50 Ambulatory Aids Independent 12/30/24 17:50 Tubes/Lines None 12/30/24 17:50 Gait Evaluation No gait disturbance 12/30/24 17:50 Cognition No cognitive impairment 12/30/24 17:50 Fall Total Score 0 12/30/24 17:50 Level of Risk Standard/Low Risk 12/30/24 17:50 Problems (Updated 12/30/24 @ 17:49 by AMBER JEAN BAPTISTE) Type 2 diabetes mellitus (Acute) Chronic pain (Chronic) Transaminitis (Acute) Abdominal pain (Acute) Pancreatic pseudocyst (Acute) Notes 12/30/24 15:55 Nursing Notes by Kaya Velez Faxed a request for discharge summary from [facility] to their records release facility @ 1663. Nursing Note: Initialized on 12/30/24 15:55 - END OF NOTE v v v v v v v v v Sending and/or Receiving Nurses: Please use comment section below to note any information pertinent to the patient hand-off not included above. Information / Comments: Pt arrived to the unit at 17:35. On RA, IV in RAC. Report received from: Barbara ENRIQUE in the ED @[id number].
[2024-12-30] MEDS: fentaNYL 50 MCG PATCH TD (18:45)
[2024-12-30] MEDS: Normal Saline 1,000 ML 125 ML IV (18:51)
[2024-12-30] MEDS: Insulin Aspart 300 UNITS/3 ML PEN SC (20:12)
[2024-12-31] MEDS: HYDROmorphone 2 MG/ML SYR IVP ×5 (01:37→11:18)
[2024-12-31 02:30] VITALS: BP 113/82; PULSE 64; RESP 16; TEMP 36.7; O2SAT 93
[2024-12-31] MEDS: Normal Saline 1,000 ML 125 ML IV ×3 (03:00→23:33)
[2024-12-31] MEDS: Insulin Aspart 300 UNITS/3 ML PEN SC (06:10)
[2024-12-31 06:55] LABS: Abs Immature Grans 0.02 10^3/uL (0.0-0.06); HCT 39.2 % (40.0-50.0); HGB 12.8 g/dL (13.5-17.5); Immature Grans % 0.3 %; MCH 29.4 pg (27.0-33.0); MCHC 32.7 % (32.0-36.0); MCV 90 fL (80-95); MPV 11.9 fL (8.0-11.0); Platelet Count 165 10^3/uL (130-400); RBC 4.35 10^6/uL (4.36-5.78); RDW 14.4 % (11.8-14.1); RDW-SD 47.7 fL; WBC 6.83 10^3/uL (4.4-10.8)
[2024-12-31] MEDS: Ondansetron 4 MG/2 ML VIAL IVP ×3 (06:58→16:46)
[2024-12-31 07:17] LABS: Magnesium 1.8 mg/dL (1.8-2.4)
[2024-12-31 07:22] LABS: ALT 562 U/L (16-63); AST 232 U/L (15-37); Albumin 3.6 g/dL (3.4-5.0); Alkaline Phosphatase 640 U/L (46-116); Anion Gap 6.8 mmol/L (3-11); BUN 6 mg/dL (7-18); Bilirubin, Total 1.5 mg/dL (0.2-1.0); CO2 31.2 mmol/L (21.0-32.0); Calcium 9.1 mg/dL (8.5-10.1); Chloride 100 mmol/L (98-107); Estimated GFR 125.15 (mL/min/1.73m2); Glucose 252 mg/dL (74-106); Potassium 4.1 mmol/L (3.5-5.1); Sodium 138 mmol/L (136-145); Total Protein 7.0 g/dL (6.4-8.2)
[2024-12-31 07:37] VITALS: BP 125/92; PULSE 62; RESP 16; TEMP 35.9; O2SAT 96
[2024-12-31] MEDS: buPROPion-XL 150 MG TABCR PO (07:57)
[2024-12-31] MEDS: Venlafaxine 150 MG CAPCR 300 MG PO (07:57)
[2024-12-31] MEDS: Normal Saline Flush 10 ML SYR IVP ×4 (07:57→20:24)
[2024-12-31] MEDS: Insulin Glargine 300 UNITS/3 ML PEN 20 UNITS SC ×2 (08:27→20:33)
--- NOTE | 2024-12-31 09:37 | PDOC.CMIN ---
Date of service: 12/31/24 Time of Service: 09:37 Care Management Initial Assmt Initial Assessment Reason for Hospitalization: abdominal pain Functional Status/Living Situation Patient Presentation: Enrique presented to the ED yesterday afternoon with chronic abdominal pain for the prior 48h. Of note, Enrique was transferred to [facility] from [facility] ED on 12/09 where he was dx with cholecystitis and underwent a cholecystectomy, he was also noted to have a pancreatic pseudocyst. He stated that he has had some pain since then, but it worsened over the last 48h, despite taking his home dilaudid and wearing a fentanly patch. Imaging showed decreased size of the pseudocyst, mild pancreatic duct lilatation and mild inflammation. He was admitted to observation for IV hydration and pain control. Surgery was consulted and felt that no surgical intervention is needed at this time. Enrique was sitting on the edge of the bed with an ice pack to his belly, when CM met with him today. He was still very pleasant, despite his obvious pain. Enrique stated that he has been dealing with this problem on and off for 2 years. Sometimes he's good, and sometimes he's not. His Dilaudid dose was increased due to his pain. 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[place]) Instrumental Activities of Daily Living (ADLs): Independent Activities/Hobbies/SocialSupport: loves riding power sports vehicles and just being outside Medications Medication Management: No Issues/Barriers identified Advance Directives Advance Directives: Do you have an Advance Directive: AD On File at [facility]: N 12/09/24, 10:39 Date Asked 12/30/24 12/30/24, 11:59 AD Date Reviewed COLST On File at [facility] COLST Date Scanned Code Status Resuscitation Status Full Code Insurance Coverage/Financial Issues Insurance: [facility] Care Team Visit Care Team Role Provider Type Darby Garland NP MD [facility] STAFF PHYSICIAN Lara Koenig Primary Care Provider NON-[facility] STAFF PHYSICIAN Cuca Reynolds RDN, [facility] Other Providers PUMP RUNNER Ady Monzon RDN Other Providers PUMP RUNNER Jaime Zamora, Emergency Provider [facility] STAFF PHYSICIAN Roc Wagner MD Admit Provider [facility] STAFF PHYSICIAN Attending Provider Discharge Potential Discharge Needs: PCP F/U Appt Anticipated Barriers to Discharge: None Identified Patient/Family Education Needs: Review discharge instructions, discuss Ask Me Three Transportation: Private vehicle Plan: Enrique will likely be discharged home with no new home care services. He will f/u with his PCP, and possibly his surgeon, and continue per his plan of care. Enrique will need a work note on discharge. CM will continue to follow. Social Determinants of Health Screening Social Determinants of health last assessed in clinic: 12/31/24 Will the Patient Participate in the Screening?: Yes Do you worry about having a steady place to live?: no Problems where you live: no known problems In the past 12 months, have you had to go without electric, gas, oil or water in your home?: no 1. Within the past 12 months, we worried whether our food would run out before we got money to buy more.: Don't know/refused 2. Within the past 12 months, the food we bought just didn't last and we didn't have money to get more.: Don't know/refused Has lack of transportation kept you from medical appointments or from doing things needed for daily living?: no Has anyone in your life made you feel unsafe or unsupported?: no How hard is it for you to pay for the very basics like food, housing, medical care, and heating? Would you say it is:: Not hard at all Do you want help finding or keeping work or a job?: I do not need or want help If for any reason you need help with day-to-day activities such as bathing, preparing meals, shopping, managing finances, etc., do you get the help you need?: I don?t need any help How often do you feel lonely or isolated from those around you?: Never Do you speak a language other than Citizen [place] at home?: No Does the patient want assistance with any of the above?: No PFSH All Active Problems (Updated 12/30/24 @ 18:32 by Darby Garland NP) Alcohol use disorder (Acute) Type 2 diabetes mellitus (Acute) Chronic pain (Chronic) Transaminitis (Acute) Abdominal pain (Acute) Hepatitis (Acute) Acute pancreatitis (Acute) Pancreatic pseudocyst (Acute) Social History Smoking/Tobacco Use Status: Current every day Tobacco Type: smokeless tobacco Smoking risk assessment performed?: Yes Alcohol Intake: former Drug use: Daily Substance use type: marijuana Housing: apartment Do you feel safe at home: Yes Do you feel safe in your relationship?: Yes
[2024-12-31 11:09] VITALS: BP 117/98; PULSE 82; RESP 16; TEMP 36.9; O2SAT 98
--- NOTE | 2024-12-31 14:27 | PGE_ITS ---
Date of Service Date of service: 12/31/24 Time of Service: 14:28 Assessment and Plan Assessment and plan (1) Abdominal pain: Status: Acute Assessment and plan: Patient has persistent, severe upper abdominal pain not relieved by home opioids. Dilaudid 4 mg QID prn and fentanyl 50 mcg patch (200 MME) Imaging shows decreased size of pancreatic pseudocyst, mild pancreatic duct d ilatation, and mild inflammation; no fluid collection or acute obstruction. lipase negative ongoing IV hydration s/p additional bolus , and pain control. Trend labs (CBC, CMP, LFTs, amylase/lipase) daily. Comnpleted surgical consultation: no acute surgical intervention indicated at this time. Ongoing fentanyl patch and increase dilaudid 3 mg q2h prn severe pain (2) Pancreatic pseudocyst: Status: Acute Assessment and plan: Mild residual inflammation as per imaging - but improving continue observation; no intervention currently indicated. Contiue to hold enzymes as on clear liquids (3) Transaminitis: Status: Acute Assessment and plan: Continue daily monitoring of significant elevation findings in AST/ALT/ALP compared to prior baseline; bilirubin improving. No systemic signs of infection or stones Hepatitis panel and tick/Lyme panel pending Consider HIDA scan if clinical or lab status worsens Labs in AM Reassess daily and adjust plan based on clinical status, labs, and imaging. (4) Chronic pain: Status: Chronic Assessment and plan: Patient on fentanyl patch and PRN Dilaudid; pain remains significant. Ongoing IV dilaudid as needed for breakthrough pain adjust PRN .- Pain 8/10 prior to pain meds then 6/10 Monitor for efficacy and side effects. (5) Type 2 diabetes mellitus: Status: Acute Assessment and plan: Ongoing home insulin regimen continues - decreased 10 %; on clears (glargine + sliding scale aspart). Monitor blood glucose inpatient AC and HS with SSI coverage (6) Alcohol use disorder: Status: Acute Assessment and plan: Continue home med (patient has with him, pharmacy to approve), Sober as per patient- no Ethyl level on admission Acamprosate - 666 mg TID Patient reported 1.5 y sobriety On LMWH for DVT prophylaxis discussed with Dr Gibbs Subjective Subjective Patient reports: no new complaints, pain is less, voiding w/o difficulty, flatus, bowel movement, nausea and vomiting; denies tolerating liquids well, patricio erating a regular diet, blood in stool, shortness of breath or fever Exam Narrative Exam Narrative: alert & oriented X4,non -icteric sclera , no JVD, neurologically intact, clear lungs, S1, S2 regular heart rate and rhythm, abd in non-distended, soft and tender to LUQ epigastrum and RUQ + morrison's , no CVA tendreness, moves all for ext, no rash or lesion on exposed skin Objective Last Vital Signs Temp 36.9 C 12/31/24 11:09 Pulse 82 12/31/24 11:09 Resp 16 12/31/24 11:09 BP 117/98 H 12/31/24 11:09 Pulse Ox 98 12/31/24 11:09 Laboratory Results - last 24 hr 12/31/24 06:32 WBC 6.83 RBC 4.35 L Hgb 12.8 L Hct 39.2 L MCV 90 MCH 29.4 MCHC 32.7 RDW 14.4 H Plt Count 165 MPV 11.9 H Immature Gran % 0.3 Neutrophils % 42.7 Lymphocytes % 38.4 Monocytes % 6.7 Eosinophils % 10.7 Basophils % 1.2 Nucleated RBC % 0.0 Absolute Neutrophils 2.92 Absolute Lymphocytes 2.62 Absolute Monocytes 0.46 Absolute Eosinophils 0.73 H Absolute Basophils 0.08 Sodium 138 Potassium 4.1 Chloride 100 Carbon Dioxide 31.2 Anion Gap 6.8 BUN 6 L Creatinine 0.6 L Est GFR (CKD-EPI 2020) 125.15 Glucose 252 H Calcium 9.1 Magnesium 1.8 Total Bilirubin 1.5 H AST 232 H ALT 562 H Alkaline Phosphatase 640 H Total Protein 7.0 Albumin 3.6 Time Spent with Patient Time Spent with Patient: >50 minutes Time was spent: preparing to see the patient(eg.review tests), obtaining and/or reviewing separately otained hiistory, ordering medications,tests, procedures, referring, communicating with other health assistant child care teacher, indepentently interpreting results, counseling the patient, care coordination and other
[2024-12-31] MEDS: Normal Saline 1,000 ML 1000 ML IV (14:51)
[2024-12-31] MEDS: HYDROmorphone 2 MG/ML SYR 3 MG IVP ×4 (14:51→22:27)
[2024-12-31] MEDS: Metoclopramide 10 MG/2 ML VIAL 5 MG IVP (15:00)
[2024-12-31 15:05] VITALS: BP 119/94; PULSE 61; RESP 16; TEMP 37; O2SAT 98
[2024-12-31 19:16] LABS: Hepatitis A Antibody IgM Negative (Negative); Hepatitis C Ab w Rflx HCV PCR Negative (Negative)
[2025-01-01 00:18] VITALS: BP 125/101; PULSE 70; RESP 16; TEMP 36.8; O2SAT 95
[2025-01-01] MEDS: HYDROmorphone 2 MG/ML SYR 3 MG IVP ×10 (00:26→23:00)
[2025-01-01] MEDS: Normal Saline Flush 10 ML SYR IVP ×5 (00:27→21:00)
[2025-01-01] MEDS: Ondansetron 4 MG/2 ML VIAL IVP ×3 (01:33→11:49)
[2025-01-01 04:44] VITALS: BP 126/94; PULSE 87; RESP 16; TEMP 36.6; O2SAT 95
[2025-01-01 06:39] LABS: Abs Immature Grans 0.01 10^3/uL (0.0-0.06); HCT 40.5 % (40.0-50.0); HGB 13.1 g/dL (13.5-17.5); Immature Grans % 0.1 %; MCH 29.7 pg (27.0-33.0); MCHC 32.3 % (32.0-36.0); MCV 92 fL (80-95); MPV 12.4 fL (8.0-11.0); Platelet Count 172 10^3/uL (130-400); RBC 4.41 10^6/uL (4.36-5.78); RDW 14.6 % (11.8-14.1); RDW-SD 49.4 fL; WBC 6.82 10^3/uL (4.4-10.8)
[2025-01-01 06:56] LABS: Magnesium 1.8 mg/dL (1.8-2.4)
[2025-01-01 07:01] LABS: ALT 476 U/L (16-63); AST 137 U/L (15-37); Albumin 3.7 g/dL (3.4-5.0); Alkaline Phosphatase 596 U/L (46-116); Anion Gap 8.2 mmol/L (3-11); BUN 4 mg/dL (7-18); Bilirubin, Total 1.1 mg/dL (0.2-1.0); CO2 33.8 mmol/L (21.0-32.0); Calcium 9.3 mg/dL (8.5-10.1); Chloride 102 mmol/L (98-107); Estimated GFR 125.15 (mL/min/1.73m2); Glucose 115 mg/dL (74-106); Potassium 4.0 mmol/L (3.5-5.1); Sodium 144 mmol/L (136-145); Total Protein 7.0 g/dL (6.4-8.2)
[2025-01-01 07:32] VITALS: BP 148/117; PULSE 77; RESP 16; TEMP 36.9; O2SAT 98
[2025-01-01] MEDS: Venlafaxine 150 MG CAPCR 300 MG PO (07:51)
[2025-01-01] MEDS: buPROPion-XL 150 MG TABCR PO (07:51)
[2025-01-01] MEDS: Enoxaparin 40 MG/0.4 ML SYR SC (07:52)
[2025-01-01] MEDS: Normal Saline 1,000 ML 125 ML IV (07:53)
[2025-01-01] MEDS: Insulin Glargine 300 UNITS/3 ML PEN 20 UNITS SC ×2 (07:58→21:06)
--- NOTE | 2025-01-01 09:58 | W.NUTRFU ---
Date of service: 12/31/24 Time of Service: 14:00 Nutrition Note NOTE: met with Enrique yesterday - sitting in bed. still on clears for lunch on 12/31 and told me he vomited afterwards - just a little and mostly water. Hx of chronic pancreatitis with creon taken at meals. pancreatic damage has led to insulin dependence and Enrique works with sliding scale mealtime insulin and 20units BID of glargine. Has been watching fat intake for 2 years and finds his body reacting to same food differently and different times - sometimes causing pain and sometimes tolerating fine. Denies sig weight changes recently or any concerns with chewing and swallowing. I don't see hgb A1c in labs but glucose has improved over this admission 300's down to fasting of 115 today. fingersticks also improved significantly over admission with 312 noted on the th and 99-109 later yesterday to today. Uses CGM to monitor at home. Pt feels he has a good grasp on glucose mgt but feels it can be inconsistent, which can come with skipped meals or unplanned intake etc.. Offered outpatient services to trouble shoot diet and work towards any goals he has with nutrition and getting [id number]. Will continue to monitor glucose and recommend adjustments to current insulin order. Recommend current A1C level Time Spent in Nutritional Counseling and Treatment: 10 min
[2025-01-01] MEDS: Acamprosate 333 MG TABCR 666 MG PO ×3 (10:34→20:58)
[2025-01-01 11:02] LABS: Lyme Ab w Rflx to Lyme Confirm Negative (Negative)
[2025-01-01 11:08] VITALS: BP 140/105; PULSE 69; RESP 16; TEMP 37.2; O2SAT 96
--- NOTE | 2025-01-01 11:17 | PGE_ITS ---
Date of Service Date of service: 01/01/25 Time of Service: 11:17 Assessment and Plan Assessment and plan (1) Abdominal pain: Status: Acute Assessment and plan: Ongoing home dose fentanyl 50 mcg patch (200 MME) Continue hydromorphone 3 mg IV Q2 H As per Imaging decreased size of pancreatic pseudocyst, mild pancreatic duct dilatation, and mild inflammation; no fluid collection or acute obstruction. lipase 60 ongoing IV hydration, consider stopping when adequate enteral fluid intake Completed surgical consultation: no acute surgical intervention indicated at this time. Ongoing fentanyl patch and increase dilaudid 3 mg q2h prn severe pain (2) Pancreatic pseudocyst: Status: Acute Assessment and plan: Mild residual inflammation as per imaging - but improving continue observation; no intervention currently indicated. Contiue to hold enzymes as on clear liquids (3) Transaminitis: Status: Acute Assessment and plan: Levels are trending down, including bilirubin Continue to trend No systemic signs of infection or stones Hepatitis panel - and lyme are negative Other tick bloodborn pathogen pending Consider HIDA scan if clinical or lab status worsens Labs in AM Reassess daily and adjust plan based on clinical status, labs, and imaging. (4) Chronic pain: Status: Chronic Assessment and plan: Patient on fentanyl patch and PRN Dilaudid; pain remains significant. Improved pain control - will continue IV dilaudid as needed for breakthrough pain adjust PRN .- Monitor for efficacy and side effects. (5) Type 2 diabetes mellitus: Status: Acute Assessment and plan: Continue home insulin regimen -reduced dose by 10% d/t diet modification Continue Monitor blood glucose inpatient AC and HS with SSI coverage (6) Nicotine dependence: Status: Acute Assessment and plan: Report history of past cigarette dependence and using NRT at home Nicotine replacement therapy ordered (7) Anxiety: Status: Chronic Assessment and plan: home meds lorazepam oral PRN Considering nicotine withdrawal (8) Alcohol use disorder: Status: Acute Assessment and plan: Continue home med (patient has with him, pharmacy to approve), Sober as per patient- no Ethyl level on admission - now increased anxiety , overwhelmed and tearful and as per point 7 Continue Acamprosate - 666 mg TID Patient reported 1.5 y sobriety- No Ethyl level drawn on admit, now experiencing increased anxiety Continue LMWH for DVT prophylaxis discussed with Dr Gibbs Subjective Subjective Patient reports: voiding w/o difficulty, bowel movement, nausea and other (overhelmed and increased anxiety when getting blood sugar testing by TELEPHONER, iv zofran by RN, and provider talking to him- tearful -agrees w low dose lorazepam to assist ); denies diarrhea, blood in stool, vomiting, shortness of breath or fever Exam Narrative Exam Narrative: alert & oriented X4, tearful, increased muscle tension, heavy sighs while assessing cause of distress:Stating feeling extremely frustrated d/t feeling overwhelmed when 3 staff members are around while he is trying to ask specific q uestions such as advancing clear liquid diet to more solid food ( wanted specific answer : diabetic diet- low fat- solid food) mentioned feeling that provided was frustrated with him but was unable to pin point specifics just a feeling and provider standing at bedside increasing anxiety, directed provider to sit in room corner- during discussion patient could not verbalize any events in the past 24 hours that could have triggered his increased anxiety- but agrees that low dose lorazepam would help. Non-icteric sclera , no JVD, neurologically intact, clear lungs, S1, S2 regular heart rate and rhythm, abd in non-distended, soft and tender to LUQ - morrison's , moves all for ext, no rash or lesion on exposed skin, anxious mood and affect. Objective Last Vital Signs Temp 37.2 C 01/01/25 11:08 Pulse 69 01/01/25 11:08 Resp 16 01/01/25 11:08 BP 140/105 H 01/01/25 11:08 Pulse Ox 96 01/01/25 11:08 Laboratory Results - last 24 hr 12/30/24 01/01/25 16:33 05:58 WBC 6.82 RBC 4.41 Hgb 13.1 L Hct 40.5 MCV 92 MCH 29.7 MCHC 32.3 RDW 14.6 H Plt Count 172 MPV 12.4 H Immature Gran % 0.1 Neutrophils % 37.1 Lymphocytes % 40.2 Monocytes % 6.7 Eosinophils % 15.0 Basophils % 0.9 Nucleated RBC % 0.0 Absolute Neutrophils 2.53 Absolute Lymphocytes 2.74 Absolute Monocytes 0.46 Absolute Eosinophils 1.02 H Absolute Basophils 0.06 Sodium 144 Potassium 4.0 Chloride 102 Carbon Dioxide 33.8 H Anion Gap 8.2 BUN 4 L Creatinine 0.6 L Est GFR (CKD-EPI 2020) 125.15 Glucose 115 H Calcium 9.3 Magnesium 1.8 Total Bilirubin 1.1 H AST 137 H ALT 476 H Alkaline Phosphatase 596 H Total Protein 7.0 Albumin 3.7 Hepatitis A IgM Ab Negative Hep Bs Antigen Negative Hep B Core Total Ab Negative Hepatitis C Antibody Negative Time Spent with Patient Time Spent with Patient: >50 minutes Time was spent: preparing to see the patient(eg.review tests), obtaining and/or reviewing separately otained hiistory, ordering medications,tests, procedures, referring, communicating with other health career based intervention coordinator, indepentently interpreting results, counseling the patient, care coordination and other
[2025-01-01] MEDS: Nicotine 2 MG GUM CH ×3 (11:49→23:04)
[2025-01-01] MEDS: Lactated Ringers 1,000 ML 100 ML IV ×2 (11:51→16:03)
[2025-01-01] MEDS: LORazepam 0.5 MG TAB PO ×2 (12:48→20:58)
[2025-01-01] MEDS: Metoclopramide 10 MG/2 ML VIAL 5 MG IVP (16:15)
[2025-01-01] MEDS: Polyethylene Glycol 3350 17 GM PACKET PO (16:45)
--- NOTE | 2025-01-01 18:52 | PDOC.CMPRO ---
Date of service: 01/01/25 Time of Service: 18:53 Care Management Progress Note Progress Note Text Progress Note Text: Enrique was sitting up in bed, watching TV, when CM met with him today. He looked like he was feeling a lot better, and stated that he is really feeling much better. He slept some last night, was able to tolerate some solids, and his pain is much better controlled. Enrique was again very pleasant and polite. He is hoping to go home tomorrow if his night goes well. Discharge Potential Discharge Needs: PCP F/U Appt Anticipated Barriers to Discharge: None Identified Patient/Family Education Needs: Review discharge instructions, discuss Ask Me Three Transportation: Private vehicle Plan: Enrique will likely be discharged home with no new home care services. He will f/u with his PCP, and possibly his surgeon, and continue per his plan of care. Enrique will need a work note on discharge. CM will continue to follow. Social Determinants of Health Screening Social Determinants of health last assessed in clinic: 01/01/25 Will the Patient Participate in the Screening?: Yes Do you worry about having a steady place to live?: no Problems where you live: no known problems In the past 12 months, have you had to go without electric, gas, oil or water in your home?: no 1. Within the past 12 months, we worried whether our food would run out before we got money to buy more.: Don't know/refused 2. Within the past 12 months, the food we bought just didn't last and we didn't have money to get more.: Don't know/refused Has lack of transportation kept you from medical appointments or from doing things needed for daily living?: no Has anyone in your life made you feel unsafe or unsupported?: no How hard is it for you to pay for the very basics like food, housing, medical care, and heating? Would you say it is:: Not hard at all Do you want help finding or keeping work or a job?: I do not need or want help If for any reason you need help with day-to-day activities such as bathing, preparing meals, shopping, managing finances, etc., do you get the help you need?: I don?t need any help How often do you feel lonely or isolated from those around you?: Never Do you speak a language other than [place] at home?: No Does the patient want assistance with any of the above?: No
[2025-01-01 20:09] VITALS: BP 133/103; PULSE 76; RESP 15; TEMP 36.6; O2SAT 97
[2025-01-02 00:05] VITALS: BP 118/101; PULSE 81; RESP 14; TEMP 36.6; O2SAT 95
[2025-01-02] MEDS: HYDROmorphone 2 MG/ML SYR 3 MG IVP ×2 (02:11→06:23)
[2025-01-02] MEDS: Lactated Ringers 1,000 ML 100 ML IV (02:11)
[2025-01-02] MEDS: Ondansetron 4 MG/2 ML VIAL IVP (02:11)
[2025-01-02 03:19] VITALS: BP 125/97; PULSE 71; RESP 16; TEMP 36.9; O2SAT 96
[2025-01-02 06:04] LABS: Abs Immature Grans 0.01 10^3/uL (0.0-0.06); HCT 41.4 % (40.0-50.0); HGB 13.3 g/dL (13.5-17.5); Immature Grans % 0.1 %; MCH 29.2 pg (27.0-33.0); MCHC 32.1 % (32.0-36.0); MCV 91 fL (80-95); MPV 11.6 fL (8.0-11.0); Platelet Count 158 10^3/uL (130-400); RBC 4.56 10^6/uL (4.36-5.78); RDW 14.2 % (11.8-14.1); RDW-SD 47.7 fL; WBC 6.68 10^3/uL (4.4-10.8)
[2025-01-02] MEDS: Nicotine 2 MG GUM CH (06:23)
[2025-01-02 06:27] LABS: ALT 383 U/L (16-63); AST 76 U/L (15-37); Albumin 3.9 g/dL (3.4-5.0); Alkaline Phosphatase 570 U/L (46-116); Anion Gap 6.6 mmol/L (3-11); BUN 8 mg/dL (7-18); Bilirubin, Total 1.0 mg/dL (0.2-1.0); CO2 35.4 mmol/L (21.0-32.0); Calcium 9.5 mg/dL (8.5-10.1); Chloride 99 mmol/L (98-107); Estimated GFR 119.46 (mL/min/1.73m2); Glucose 167 mg/dL (74-106); Potassium 3.7 mmol/L (3.5-5.1); Sodium 141 mmol/L (136-145); Total Protein 7.3 g/dL (6.4-8.2)
[2025-01-02 07:28] LABS: GGT 1217 U/L (15-85)
[2025-01-02 07:31] VITALS: BP 116/88; PULSE 76; RESP 17; TEMP 36.5; O2SAT 99
[2025-01-02] MEDS: LORazepam 0.5 MG TAB PO (08:51)
[2025-01-02] MEDS: Venlafaxine 150 MG CAPCR 300 MG PO (08:51)
[2025-01-02] MEDS: Metoclopramide 10 MG/2 ML VIAL 5 MG IVP (08:52)
[2025-01-02] MEDS: Enoxaparin 40 MG/0.4 ML SYR SC (08:52)
[2025-01-02] MEDS: buPROPion-XL 150 MG TABCR PO (08:52)
[2025-01-02] MEDS: Acamprosate 333 MG TABCR 666 MG PO (08:52)
[2025-01-02] MEDS: Insulin Aspart 300 UNITS/3 ML PEN SC (08:56)
[2025-01-02] MEDS: Insulin Glargine 300 UNITS/3 ML PEN 20 UNITS SC (08:56)
[2025-01-02] MEDS: Normal Saline Flush 10 ML SYR IVP (08:57)
--- NOTE | 2025-01-02 10:26 | PGE_ITS ---
Date of Service Date of service: 01/02/25 Time of Service: 10:26 Assessment and Plan Assessment and plan (1) Abdominal pain: Status: Acute Assessment and plan: Ongoing home dose fentanyl 50 mcg patch (200 MME) Continue hydromorphone 3 mg IV Q2 H As per Imaging decreased size of pancreatic pseudocyst, mild pancreatic duct dilatation, and mild inflammation; no fluid collection or acute obstruction. lipase 60 ongoing IV hydration, consider stopping when adequate enteral fluid intake Completed surgical consultation: no acute surgical intervention indicated at this time. Ongoing fentanyl patch and increase dilaudid 3 mg q2h prn severe pain (2) Pancreatic pseudocyst: Status: Acute Assessment and plan: Mild residual inflammation as per imaging - but improving continue observation; no intervention currently indicated. Contiue to hold enzymes as on clear liquids (3) Transaminitis: Status: Acute Assessment and plan: Levels are trending down, including bilirubin Continue to trend No systemic signs of infection or stones Hepatitis panel - and lyme are negative Other tick bloodborn pathogen pending Consider HIDA scan if clinical or lab status worsens Labs in AM Reassess daily and adjust plan based on clinical status, labs, and imaging. (4) Chronic pain: Status: Chronic Assessment and plan: Patient on fentanyl patch and PRN Dilaudid; pain remains significant. Improved pain control - will continue IV dilaudid as needed for breakthrough pain adjust PRN .- Monitor for efficacy and side effects. (5) Type 2 diabetes mellitus: Status: Acute Assessment and plan: Continue home insulin regimen -reduced dose by 10% d/t diet modification Continue Monitor blood glucose inpatient AC and HS with SSI coverage (6) Nicotine dependence: Status: Acute Assessment and plan: Report history of past cigarette dependence and using NRT at home Nicotine replacement therapy ordered (7) Anxiety: Status: Chronic Assessment and plan: home meds lorazepam oral PRN Considering nicotine withdrawal (8) Alcohol use disorder: Status: Acute Assessment and plan: Continue home med (patient has with him, pharmacy to approve), Sober as per patient- no Ethyl level on admission - now increased anxiety , overwhelmed and tearful and as per point 7 Continue Acamprosate - 666 mg TID Patient reported 1.5 y sobriety- No Ethyl level drawn on admit, now experiencing increased anxiety Continue LMWH for DVT prophylaxis discussed with Dr Gibbs Subjective Subjective Patient reports: voiding w/o difficulty, bowel movement, nausea and other (overhelmed and increased anxiety when getting blood sugar testing by DYE ROOM HELPER, iv zofran by RN, and provider talking to him- tearful -agrees w low dose lorazepam to assist ); denies diarrhea, blood in stool, vomiting, shortness of breath or fever Exam Narrative Exam Narrative: alert & oriented X4, tearful, increased muscle tension, heavy sighs while assessing cause of distress:Stating feeling extremely frustrated d/t feeling overwhelmed when 3 staff members are around while he is trying to ask specific q uestions such as advancing clear liquid diet to more solid food ( wanted specific answer : diabetic diet- low fat- solid food) mentioned feeling that provided was frustrated with him but was unable to pin point specifics just a feeling and provider standing at bedside increasing anxiety, directed provider to sit in room corner- during discussion patient could not verbalize any events in the past 24 hours that could have triggered his increased anxiety- but agrees that low dose lorazepam would help. Non-icteric sclera , no JVD, neurologically intact, clear lungs, S1, S2 regular heart rate and rhythm, abd in non-distended, soft and tender to LUQ - morrison's , moves all for ext, no rash or lesion on exposed skin, anxious mood and affect. Objective Last Vital Signs Temp 36.5 C 01/02/25 07:31 Pulse 76 01/02/25 07:31 Resp 17 01/02/25 07:31 BP 116/88 01/02/25 07:31 Pulse Ox 99 01/02/25 07:31 Laboratory Results - last 24 hr 12/30/24 01/02/25 16:33 05:40 WBC 6.68 RBC 4.56 Hgb 13.3 L Hct 41.4 MCV 91 MCH 29.2 MCHC 32.1 RDW 14.2 H Plt Count 158 MPV 11.6 H Immature Gran % 0.1 Neutrophils % 42.1 Lymphocytes % 34.1 Monocytes % 6.7 Eosinophils % 16.0 Basophils % 1.0 Nucleated RBC % 0.0 Absolute Neutrophils 2.80 Absolute Lymphocytes 2.28 Absolute Monocytes 0.45 Absolute Eosinophils 1.07 H Absolute Basophils 0.07 Sodium 141 Potassium 3.7 Chloride 99 Carbon Dioxide 35.4 H Anion Gap 6.6 BUN 8 Creatinine 0.7 Est GFR (CKD-EPI 2020) 119.46 Glucose 167 H Calcium 9.5 Total Bilirubin 1.0 GGT 1217 H AST 76 H ALT 383 H Alkaline Phosphatase 570 H Total Protein 7.3 Albumin 3.9 Lyme Disease Antibody Negative
[2025-01-02] MEDS: HYDROmorphone 4 MG TAB PO (11:42)
[2025-01-02] MEDS: Milk of Magnesia 30 ML CUP PO (11:42)
--- NOTE | 2025-01-02 12:21 | NUR.NOTE ---
This nurse received patient in room, he is worried about discharge plan, he was informed than the plan is discharge patient today, he had a questions about his pancreatic enzymes, I informed that drink alcohol is a risk factor, this nurse asked, do you drink ?, he started to be anxious and get mad about the question saying he has been sober for 200 days and I mentioned it is just a risk factor, I let him know I asked for discharge plan, patent mentioned he wants to leave as soon as possible, this nurse informed all this to THREAD SPOOLER and CN. patient states somebody was giggling of him in the meeting this morning I spoke with two more witnesses. I clarify nobody was doing jokes about any patient. he mentioned he is going to talk with the board of nurses and physicians about this. He look some kind paranoid about the situation. Keeping saying somebody was giggling about him.
--- NOTE | 2025-01-02 12:34 | PDOC.CMDIS ---
Date of service: 01/02/25 Time of Service: 12:34 LACE Index Scoring Tool Questions: Length of Stay (in days): 2 Was the patient admitted via the E.D.?: Yes Comorbidities: Diabetes w/o Complication E.D. Visits: 2 Answers: Total Score: 8 Risk of Readmission: Low Risk Care Management Discharge Plan Reason for Hospitalization: Transaminitis Discharge Plan: Enrique will be discharged home with no new home care services. It is recommended he will f/u with his PCP, and possibly his surgeon, and continue per his plan of care. Enrique was given a work note on discharge. He will transport via private vehicle. Risk department notified of patient concerns. Patient/Family Education Needs: Review of discharge instructions, activity, limitations, and plan of care. Discuss ask me three.
--- NOTE | 2025-01-02 12:49 | W.PM.DS.N ---
Date of service: 01/02/25 Time of Service: 12:05 DS: Diagnosis Discharge Diagnosis (1) Abdominal pain: Status: Acute (2) Pancreatic pseudocyst: Status: Acute (3) Transaminitis: Status: Acute (4) Chronic pain: Status: Chronic (5) Type 2 diabetes mellitus: Status: Acute (6) Nicotine dependence: Status: Acute (7) Anxiety: Status: Chronic (8) Alcohol use disorder: Status: Acute Discharge Plan Disposition Patient Disposition: Home Condition: Improving Discharge Details Reason For Visit: Transaminitis Admit Date/Time: 01/01/25 11:10 Admit Provider: Roc Wagner Attending Provider: Roc Wagner Primary Care Provider: Lara Koenig Hospital Course Hospital Course: This is a 39-year-old male with a history of diabetes mellitus, chronic pancreatitis with prior stents (now removed), pancreatic pseudocyst, and recent cholecystectomy on 12/09/24 at [facility]. He presented with worsening upper abdominal pain over 48 hours, severe and constant, associated with nausea but no vomiting. His chronic pain regimen of fentanyl patch and oral Dilaudid did not relieve symptoms. He denied fevers, chills, chest pain, cough, GI bleeding, or urinary symptoms. On exam, he was afebrile, hemodynamically stable, and alert/oriented. Abdomen revealed voluntary guarding and diffuse tenderness, greatest at surgical sites, which were clean, dry, and intact with minimal dehiscence but no drainage or erythema. Labs revealed stable CBC without leukocytosis or bandemia, but transaminases and alkaline phosphatase were significantly elevated compared to recent baseline (AST 239, ALT 606, Alk Phos 707). Bilirubin was 1.6, down from 3.1 at prior check. Lactate was normal. Procalcitonin was mildly elevated but no systemic signs of infection were present. Imaging included CT and MRCP, which demonstrated decreased size of pancreatic pseudocyst, persistent but stable mild intra- and extrahepatic biliary dilatation, pancreatic atrophy with mild duct dilatation, and no evidence of common bile duct stones, fluid collections, or acute obstruction. No acute postoperative complications were identified. Surgical consultation was obtained; no acute operative intervention was indicated. Patient is placed on observation status, IV hydration, IV pain control, and trending of LFTs as recommended. with consideration of HIDA scan if labs worsen or symptoms progress. Hepatitis and Lyme disease were negative, other other tick panel results are pending. On day one of admission the patient emntioned imrpoved pain control but required increased in the dosing for better pain control; upon increasing the IV hydromorphone, the patient verbalized improved pain control. On days 2 the patient mentioned becoming increasingly anxious, overwhelmed by provided and [employer]CH and RN attending to him at the same time. At the time the patient was agreeable to low dose PRN lorazepam which was initiated and effective in improving his anxiety symptoms as per self-report during later encounter that day. The patient was tolerating enteral intake of clear liquid and the diet was advanced to regular consistency low fat diabetic diet which was well tolerated. During the stay liver enzymes and bilirubin continued to trend down but however GGT was at 1217( AST 76, ALT 383, and ALK 570) when compared to 927 at [facility] on 12/12/24. The patient reportedly asked RN about if we figured out why my liver enzymes kept going up and the nusrse asked if he was drinking, causing the patient to become increasingly anxious and demanding to go home. RN, provider and lead charge nurse met with patient to clarify reports by patient of providers, RNs laughing at him during AM meeting; despite reassurance that no one lsughed at his expanse, the patient remains firmon his decision to leave now, mentioning that he will sixto the hospital, and ongoing rudeness from provider while the encounter was witnessed; the patient was unable to specify element showing rudeness when asked. Due to the constant requirement for hydromorphone IV during the stay and lorazepam as needed for anxiety, the patient was asked about a pharmacy among the 7 listed to send his increased frequency for oral hydromorphone and new PRN lorazepam. The patient declined any script to be sent to an outpatient pharmacy stating that he will address this with his PCP. The patient mentioned having a couple of bottles of Acamprosate when asked if he had enough of this home medicine. The patient was hemodynamically stable but was tensed as per clenching of his jaw during physical exam. Patient to follow-up with PCP within 7 days of discharge. Recommendation for GI referral as per PCP. Discussed with Dr. Gibbs Recommendations for Follow Up Recommended tests to be ordered by follow up provider: CMP Home Meds and New Rx's Prescriptions: New lorazepam 0.5 mg Tablet 0.5 mg PO BID Qty: 7 0RF ondansetron 4 mg tablet,disintegrating 4 mg PO Q8H PRNQty: 30 0RF Continued venlafaxine [Effexor XR] 150 mg capsule,extended release 24hr 300 mg PO DAILY fentanyl 50 mcg/hr patch 72 hour 1 patch transdermal Q72H bupropion HCl [Wellbutrin XL] 150 mg tablet extended release 24 hr 150 mg PO DAILY insulin glargine [Lantus U-100 Insulin] 100 unit/mL solution 20 unit subcut BID insulin aspart U-100 [Novolog FlexPen U-100 Insulin] 100 unit/mL (3 mL) insulin pen 1 sliding scale dose subcut USEASDIRECTD [id number] [Creon] 1 tab PO TID PRN Patient Comments: Taken with meals. acamprosate 2 tab PO TID Rx Instructions: 333mg per tablet hydromorphone [Dilaudid] 4 mg tablet 4 mg PO Q6H PRNQty: 0 0RF Discharge Instructions Referrals: Lara Koenig [Primary Care Provider, Medicine] Referral Note: follow-up within 7 days of discharge Activity:: Activity as Tolerated Equipment/Supplies:: As per home regimen Diet:: diabetic low fat Discharge Orders Discharge Orders: Discharge Order (Routine); Ordered 01/02/25 Ordered By: Aby Ordonez DS: Summary Time Spent with Patient providing and/or coordinating discharge services: Greater than 30 minutes Status at Discharge Functional status at discharge: independent ambulation Overall status at discharge: patient is progressing back to baseline Mental Status: mental status grossly normal and other Speech and Movement: agitated Mood: anxious mood, angry, irritable mood and other Affect: labile affect, anxious affect and irritable affect Exam Narrative Exam Narrative: alert & oriented X4, tearful, increased muscle tension, jaw clenching, non-icteric sclera , no JVD, neurologically intact, clear lungs, S1, S2 regular heart rate and rhythm, abd is non-distended, soft and tender to LUQ - guarding RUQ no tenderness - morrison's , moves all for ext, no rash or lesion on exposed skin, anxious mood and affect. Psych Mental Status: mental status grossly normal and other Speech and Movement: agitated Mood: anxious mood, angry, irritable mood and other Affect: labile affect, anxious affect and irritable affect DS: Data Vitals/I&O Vitals and I&O: Vital Signs Temperature 36.5 C 01/02/25 07:31 Temperature Source Temporal Artery Scan 01/02/25 07:31 Pulse 76 01/02/25 07:31 Pulse Rhythm Regular 12/30/24 17:50 Respiratory Rate 17 01/02/25 07:31 Respiratory Effort Normal 12/30/24 17:50 Respiratory Depth Normal 12/30/24 17:50 Respiratory Pattern Normal 12/30/24 17:50 Blood Pressure 116/88 01/02/25 07:31 Blood Pressure Mean 97 01/02/25 07:31 Pulse Oximetry 99 01/02/25 07:31 Oxygen Delivery Method Room Air 01/02/25 07:31 Oxygen Flow Rate 0 01/02/25 07:31 Pain Level 5 01/02/25 09:45 Comment PT resting will get vital at 2200. 12/31/24 19:09 Intake & Output 01/01/25 01/02/25 01/02/25 23:59 11:59 23:59 Intake Total 420 / 1420 1000 / 1000 Balance 420 / 1420 1000 / 1000 Intake: IV 420 / 1420 1000 / 1000 Other: Urine Color Yellow Urine Appearance Clear Comment reported Data Completed and Pending Labs on day of discharge: Labs from last 24 hours 01/02/25 05:40 WBC 6.68 RBC 4.56 Hgb 13.3 L Hct 41.4 MCV 91 MCH 29.2 MCHC 32.1 RDW 14.2 H Plt Count 158 MPV 11.6 H Immature Gran % 0.1 Neutrophils % 42.1 Lymphocytes % 34.1 Monocytes % 6.7 Eosinophils % 16.0 Basophils % 1.0 Nucleated RBC % 0.0 Absolute Neutrophils 2.80 Absolute Lymphocytes 2.28 Absolute Monocytes 0.45 Absolute Eosinophils 1.07 H Absolute Basophils 0.07 Sodium 141 Potassium 3.7 Chloride 99 Carbon Dioxide 35.4 H Anion Gap 6.6 BUN 8 Creatinine 0.7 Est GFR (CKD-EPI 2020) 119.46 Glucose 167 H Calcium 9.5 Total Bilirubin 1.0 GGT 1217 H AST 76 H ALT 383 H Alkaline Phosphatase 570 H Total Protein 7.3 Albumin 3.9 PFSH All Active Problems (Updated 01/01/25 @ 12:24 by Aby Ordonez APRN) Nicotine dependence (Acute) Anxiety (Chronic) Alcohol use disorder (Acute) Type 2 diabetes mellitus (Acute) Chronic pain (Chronic) Transaminitis (Acute) Abdominal pain (Acute) Hepatitis (Acute) Acute pancreatitis (Acute) Pancreatic pseudocyst (Acute) Social History Smoking/Tobacco Use Status: Current every day Tobacco Type: smokeless tobacco Smoking risk assessment performed?: Yes Alcohol Intake: former Drug use: Daily Substance use type: marijuana Housing: apartment Do you feel safe at home: Yes Do you feel safe in your relationship?: Yes Time Spent with Patient Time Spent with Patient: >85 minutes Time was spent: preparing to see the patient(eg.review tests), obtaining and/or reviewing separately otained hiistory, ordering medications,tests, procedures, referring, communicating with other health child care specialist, indepentently interpreting results, counseling the patient, care coordination and other
[2025-01-03 16:01] LABS: B. miyamotoi PCR Negative (Negative); Babesia divergens/MO-1 Negative (Negative); Ehrlichia muris eauclairensis Negative (Negative)
== END 2025-01-02 13:07 | disposition home or self-care (01) | DRG 392 ==
LOC: ER 16:22 → MS 17:57
PROVIDERS: Nurse Practitioner Family; Admitting Provider Family Medicine; Emergency Provider Student in an Organized Health Care Education/Training Program; PCP Family Medicine; Responsible Provider Nurse Practitioner Acute Care; Visit Provider Family Medicine
DX: R10.10 Upper abdominal pain, unspecified (principal); K86.3 Pseudocyst of pancreas; R74.01 Elevation of levels of liver transaminase levels; G89.29 Other chronic pain; E11.9 Type 2 diabetes mellitus without complications; Z79.891 Long term (current) use of opiate analgesic; F10.91 Alcohol use, unspecified, in remission; F17.220 Nicotine dependence, chewing tobacco, uncomplicated; Z79.4 Long term (current) use of insulin; F41.9 Anxiety disorder, unspecified
CPT/HCPCS: 00123; 36415; 36416; 80053; 82962; 83690; 84145; 86704; 86709; 86803; 87340; 87798; 93005; 96361; 96374; 96375; 96376; 99285; J1650; 74177; 74181; 81003; 82977; 83605; 83735; 85025; 85610; 85730; 86618; 93010; 99222; 99233; 99239; G0378; J1171; J1815; J2405; J2765; J3490